=== PATIENT | female | born 1935 | race Caucasian/White ===

== ENCOUNTER 2016-07-16 14:04 | Inpatient (IN) | payer MEDICARE, BC ==
[~2016-07-16] VITALS: Ht 160 cm; Wt 57.9 kg
[~2016-07-16 14:04] MED LIST: CEPHALEXIN500 M1 PO; COUMADIN 22.5 MG/TAB PO; COZAAR 25MG25 MG/TAB PO; LASIX 20MG TABL20 MG PO; ZEBETA 5MG5 MG PO; ZOCOR 40MG40 MG PO
[2016-07-16] MEDS ORDERED: TENORMIN 5050 MG/TAB PO (14:10)
[2016-07-16 15:01] LABS: BASO # 0.1 (0.0-0.2); BASO % 0.4 % (0.0-2.0); EOS # 0.2 (0.0-0.7); EOS % 1.2 % (0-4.0); GRAN # 9.1 (1.4-6.5); GRAN % 73.7 % (42.2-75.2); LYMPH # 1.8 (1.2-3.4); LYMPH % 14.9 % (20.0-51.0); MEAN CELL VOLUME 82 fl (80.0-100.0); MEAN CORPUSCULAR HGB CONC 30 g/dl (33.0-37.0); MEAN PLATELET VOLUME 12.8 fl (7.4-10.4); MONO # 1.2 (0.1-0.6); MONO % 9.3 % (1.7-9.3); PLATELET COUNT 230 K/mm3 (130-400); RED BLOOD COUNT 3.31 M/mm3 (4.10-5.30); REDCELL DISTRIBUTION WIDTH-CV 17.1 % (11.5-14.5); WHITE BLOOD COUNT 12.3 K/mm3 (4.8-10.8)
[2016-07-16 15:02] LABS: HEMATOCRIT 27.1 % (37.0-47.0); HEMOGLOBIN 8.2 g/dl (12.5-16.0); MEAN CORPUSCULAR HEMOGLOBIN 25 pg (27.0-31.0)
[2016-07-16 15:06] LABS: INR 4.1 (0.8-3.0); PROTHROMBIN TIME 47.2 SECONDS (9.7-12.8)
[2016-07-16 15:37] LABS: ADJUSTED CALCIUM 9.5 mg/dL (8.4-10.2); ALBUMIN 3.6 gm/dL (3.5-5.0); BILIRUBIN,TOTAL 0.6 mg/dL (0.0-1.0); C-REACTIVE PROTEIN 0.7 mg/dL (0.0-0.9); CALCIUM 9.2 mg/dL (8.4-10.2); CREATININE, serum 1.13 mg/dL (0.52-1.25); POTASSIUM 3.7 mmol/L (3.4-5.0)
[2016-07-16 15:43] LABS: ERYTHROCYTE SEDIMENTATION RATE 32 mm/hr (0-30)
[2016-07-16 15:47] LABS: TROPONIN-I 0.015 ng/mL (0.000-0.034)
[2016-07-16 16:25] LABS: PH 5 (5-8); SQUAMOUS EPITHELIAL 0-2 /hpf; URINE BACTERIA None Seen /hpf; URINE BILIRUBIN Negative (NEGATIVE); URINE BLOOD Negative (NEGATIVE); URINE COLOR Yellow; URINE GLUCOSE Negative (NEGATIVE); URINE KETONE 1+ (NEGATIVE); URINE UROBILINOGEN Negative (NEGATIVE)
[2016-07-16 16:27] VITALS: BP 148/66; PULSE 70
[2016-07-16 16:30] LABS: URINE APPEARANCE Hazy
[2016-07-16] MEDS ORDERED: KLOR-CON M2020 MEQ PO (18:12)
[2016-07-16 18:19] VITALS: BP 131/81; PULSE 70
[2016-07-16 19:26] VITALS: BP 138/56; PULSE 72; TEMP 98.4
[2016-07-16 23:34] VITALS: BP 134/59; PULSE 68; TEMP 98.6
[2016-07-17] VITALS (13 sets, daily range): BP systolic 131–159; BP diastolic 48–68; PULSE 66–78; TEMP 97.6–98.8
[2016-07-17 06:53] LABS: BASO % 0.3 % (0.0-2.0); EOS # 0.2 (0.0-0.7); EOS % 1.3 % (0-4.0); GRAN # 10.8 (1.4-6.5); GRAN % 80.9 % (42.2-75.2); LYMPH # 1.3 (1.2-3.4); LYMPH % 9.4 % (20.0-51.0); MEAN CELL VOLUME 85 fl (80.0-100.0); MEAN CORPUSCULAR HGB CONC 29 g/dl (33.0-37.0); MEAN PLATELET VOLUME 12.8 fl (7.4-10.4); MONO % 7.7 % (1.7-9.3); PLATELET COUNT 209 K/mm3 (130-400); RED BLOOD COUNT 2.91 M/mm3 (4.10-5.30); REDCELL DISTRIBUTION WIDTH-CV 17.2 % (11.5-14.5); WHITE BLOOD COUNT 13.3 K/mm3 (4.8-10.8)
[2016-07-17 06:54] LABS: CALCIUM 8.2 mg/dL (8.4-10.2); CREATININE, serum 0.98 mg/dL (0.52-1.25)
[2016-07-17 06:56] LABS: HEMATOCRIT 24.8 % (37.0-47.0); HEMOGLOBIN 7.3 g/dl (12.5-16.0); MEAN CORPUSCULAR HEMOGLOBIN 25 pg (27.0-31.0)
[2016-07-17 07:05] LABS: INR 6.2 (0.8-3.0); PROTHROMBIN TIME 72.7 SECONDS (9.7-12.8)
[2016-07-18] VITALS (7 sets, daily range): BP systolic 123–157; BP diastolic 57–72; PULSE 63–75; TEMP 98.3–99.2
[2016-07-18 07:21] LABS: MEAN CELL VOLUME 84 fl (80.0-100.0); MEAN CORPUSCULAR HGB CONC 31 g/dl (33.0-37.0); MEAN PLATELET VOLUME 12.7 fl (7.4-10.4); PLATELET COUNT 212 K/mm3 (130-400); RED BLOOD COUNT 4.11 M/mm3 (4.10-5.30); REDCELL DISTRIBUTION WIDTH-CV 16.7 % (11.5-14.5); WHITE BLOOD COUNT 18.4 K/mm3 (4.8-10.8)
[2016-07-18 07:23] LABS: INR 1.3 (0.8-3.0)
[2016-07-18 07:24] LABS: HEMATOCRIT 34.4 % (37.0-47.0); HEMOGLOBIN 10.8 g/dl (12.5-16.0); MEAN CORPUSCULAR HEMOGLOBIN 26 pg (27.0-31.0)
[2016-07-18 07:25] LABS: ADD PATHOLOGY DIFF REVIEW NO
[2016-07-18 07:34] LABS: CALCIUM 8.5 mg/dL (8.4-10.2); CREATININE, serum 0.99 mg/dL (0.52-1.25); POTASSIUM 3.9 mmol/L (3.4-5.0)
[2016-07-18 07:54] LABS: BAND 6 % (0-10); EOSINOPHIL 2 % (0-4); METAMYELOCYTE 1 % (0-0); NEUTROPHILS 80 % (42.0-75.2); PLATELET ESTIMATE NORMAL (NORMAL); TOTAL CELLS COUNTED 100
[2016-07-19 03:33] VITALS: BP 133/68; PULSE 74; TEMP 98.6
[2016-07-19 07:26] LABS: INR 1.2 (0.8-3.0); PROTHROMBIN TIME 13.4 SECONDS (9.7-12.8)
[2016-07-19 07:27] LABS: BASO # 0.1 (0.0-0.2); BASO % 0.6 % (0.0-2.0); EOS # 0.3 (0.0-0.7); EOS % 2.2 % (0-4.0); GRAN # 10.3 (1.4-6.5); GRAN % 74.1 % (42.2-75.2); LYMPH # 1.6 (1.2-3.4); LYMPH % 11.3 % (20.0-51.0); MEAN CELL VOLUME 84 fl (80.0-100.0); MEAN CORPUSCULAR HGB CONC 32 g/dl (33.0-37.0); MEAN PLATELET VOLUME 12.7 fl (7.4-10.4); MONO # 1.5 (0.1-0.6); MONO % 10.9 % (1.7-9.3); PLATELET COUNT 221 K/mm3 (130-400); RED BLOOD COUNT 3.81 M/mm3 (4.10-5.30); REDCELL DISTRIBUTION WIDTH-CV 17.2 % (11.5-14.5); WHITE BLOOD COUNT 13.9 K/mm3 (4.8-10.8)
[2016-07-19 07:31] VITALS: BP 135/60; PULSE 73; TEMP 98.7
[2016-07-19 07:33] LABS: HEMATOCRIT 32.1 % (37.0-47.0); HEMOGLOBIN 10.2 g/dl (12.5-16.0); MEAN CORPUSCULAR HEMOGLOBIN 27 pg (27.0-31.0)
[2016-07-19 07:41] LABS: CALCIUM 8.4 mg/dL (8.4-10.2); CREATININE, serum 1.02 mg/dL (0.52-1.25); POTASSIUM 3.8 mmol/L (3.4-5.0)
[2016-07-19] MEDS ORDERED: COMPAZINE25 MG/SUPP RC (10:12)
[2016-07-19] MEDS ORDERED: ZOFRAN ODT4 MG PO (10:13)
[2016-07-19 11:09] VITALS: BP 134/62; PULSE 70; TEMP 98.4
[2016-07-19] MEDS ORDERED: COMPAZINE 110 MG/TAB PO (13:13)
[2016-07-19] MEDS ORDERED: ATIVAN 0.50.5 MG/TAB PO (13:14)
[2016-07-19] MEDS ORDERED: MUCINEX 60600 MG/TA1 PO (13:15)
== END 2016-07-19 16:28 | disposition home or self-care (01) | DRG 690 ==
LOC: COL.ER 14:04 → MEDICAL 17:05
PROVIDERS: Emergency Medicine; Internal Medicine; Nurse Practitioner Family
DX: N39.0 Urinary tract infection, site not specified (principal); C92.10 Chronic myeloid leukemia, BCR/ABL-positive, not having achieved remission; E86.0 Dehydration; Z95.2 Presence of prosthetic heart valve; Z95.810 Presence of automatic (implantable) cardiac defibrillator; Z79.01 Long term (current) use of anticoagulants; I10 Essential (primary) hypertension; Z95.1 Presence of aortocoronary bypass graft; I48.91 Unspecified atrial fibrillation; D64.81 Anemia due to antineoplastic chemotherapy; R62.7 Adult failure to thrive
CPT/HCPCS: 99223-AI; 99233-AI; 99239; G0378; G8978-GP; G8979-GP; J0696; J2060; J2405; J7030; J7050; P9040

== ENCOUNTER 2016-11-17 08:07 | Day surgery (SDC) | payer MEDICARE, BC ==
[~2016-11-17] VITALS: Ht 160 cm; Wt 54.1 kg
[2016-11-17] VITALS (8 sets, daily range): BP systolic 124–157; BP diastolic 62–79; PULSE 70–73; TEMP 97.3–98
[~2016-11-17 08:07] MED LIST changes: +ATIVAN 0.50.5 MG/TAB PO; +COMPAZINE 110 MG/TAB PO; +COMPAZINE25 MG/SUPP RC; +KLOR-CON M2020 MEQ PO; +MUCINEX 60600 MG/TA1 PO; +TENORMIN 5050 MG/TAB PO; +ZOFRAN ODT4 MG PO
[2016-11-17] MEDS ORDERED: ASPIRIN E.C. 8181 MG PO (08:41)
[2016-11-17] MEDS ORDERED: CALCIUM 600-D 61 TAB PO (08:47)
[2016-11-17] MEDS ORDERED: COUMADIN 22.5 MG/TAB PO (08:49)
[2016-11-17 08:55] LABS: HEMATOCRIT 37.7 % (37.0-47.0); MEAN CELL VOLUME 90 fl (80.0-100.0); MEAN CORPUSCULAR HEMOGLOBIN 29 pg (27.0-31.0); MEAN CORPUSCULAR HGB CONC 32 g/dl (33.0-37.0); PLATELET COUNT 212 K/mm3 (130-400); RED BLOOD COUNT 4.17 M/mm3 (4.10-5.30); REDCELL DISTRIBUTION WIDTH-CV 14.5 % (11.5-14.5)
[2016-11-17 09:00] LABS: HEMOGLOBIN 11.9 g/dl (12.5-16.0)
[2016-11-17 09:01] LABS: INR 1.6 (0.8-3.0); PROTHROMBIN TIME 17.4 SECONDS (9.7-12.8)
[2016-11-17 09:30] LABS: CALCIUM 8.5 mg/dL (8.4-10.2); CREATININE, serum 1.02 mg/dL (0.52-1.25); POTASSIUM 4.5 mmol/L (3.4-5.0)
[2016-11-17] MEDS ORDERED: CEPHALEXIN500 M1 PO (11:28)
== END 2016-11-17 13:42 | disposition home or self-care (01) ==
LOC: COL.CAR 08:07
PROVIDERS: Internal Medicine Cardiovascular Disease
DX: Z45.02 Encounter for adjustment and management of automatic implantable cardiac defibrillator (principal); R00.1 Bradycardia, unspecified; I48.91 Unspecified atrial fibrillation; I05.9 Rheumatic mitral valve disease, unspecified; I50.22 Chronic systolic (congestive) heart failure; I10 Essential (primary) hypertension; C92.10 Chronic myeloid leukemia, BCR/ABL-positive, not having achieved remission; E78.5 Hyperlipidemia, unspecified; Z79.01 Long term (current) use of anticoagulants; Z95.1 Presence of aortocoronary bypass graft; Z80.3 Family history of malignant neoplasm of breast; Z80.1 Family history of malignant neoplasm of trachea, bronchus and lung; I50.1 Left ventricular failure, unspecified
CPT/HCPCS: C1882; J0690; J2250; J3010; J7040

== ENCOUNTER 2017-05-06 10:58 | Inpatient (IN) | payer MEDICARE, BC ==
[~2017-05-06] VITALS: Ht 160 cm; Wt 62.0 kg
[~2017-05-06 10:58] MED LIST changes: +ASPIRIN E.C. 8181 MG PO; +CALCIUM 600-D 61 TAB PO
[2017-05-06 12:30] LABS: INR 2.5 (0.8-3.0); PROTHROMBIN TIME 28.9 SECONDS (9.7-12.8)
[2017-05-06 12:34] LABS: ADJUSTED CALCIUM 7.9 mg/dL (8.4-10.2); ALBUMIN 3.4 gm/dL (3.5-5.0); BILIRUBIN,TOTAL 1.2 mg/dL (0.0-1.0); CALCIUM 7.4 mg/dL (8.4-10.2); CREATININE, serum 1.25 mg/dL (0.52-1.25); MAGNESIUM 2.1 mg/dL (1.6-2.3); PHOSPHOROUS 2.4 mg/dL (2.5-4.5); POTASSIUM 3.7 mmol/L (3.4-5.0); TOTAL PROTEIN 6.3 gm/dL (6.4-8.2)
[2017-05-06 12:47] LABS: MEAN CELL VOLUME 95 fl (80.0-100.0); MEAN CORPUSCULAR HGB CONC 32 g/dl (33.0-37.0); MEAN PLATELET VOLUME 12.3 fl (7.4-10.4); PLATELET COUNT 69 K/mm3 (130-400); RED BLOOD COUNT 3.22 M/mm3 (4.10-5.30)
[2017-05-06 13:02] LABS: ADD PATHOLOGY DIFF REVIEW NO; HEMATOCRIT 30.5 % (37.0-47.0); HEMOGLOBIN 9.8 g/dl (12.5-16.0); MEAN CORPUSCULAR HEMOGLOBIN 30 pg (27.0-31.0); WHITE BLOOD COUNT 29.7 K/mm3 (4.8-10.8)
[2017-05-06 13:34] LABS: BAND 16 % (0-10); LYMPHOCYTE 6 % (20.0-51.0); NEUTROPHILS 77 % (42.0-75.2); PLATELET ESTIMATE DECREASED (NORMAL); TOTAL CELLS COUNTED 100
[2017-05-06 17:20] VITALS: BP 108/47; PULSE 84; TEMP 99
[2017-05-06] MEDS ORDERED: GLEEVEC100 MG PO (17:28)
[2017-05-06 19:01] LABS: HEMOGLOBIN 8.7 g/dl (12.5-16.0)
[2017-05-06 21:13] LABS: HEMATOCRIT 26.3 % (37.0-47.0); HEMOGLOBIN 8.4 g/dl (12.5-16.0)
[2017-05-06 21:17] VITALS: BP 108/42; PULSE 82; TEMP 99.2
[2017-05-07 01:59] VITALS: BP 119/66; PULSE 72; TEMP 98.6
[2017-05-07 04:44] VITALS: BP 103/51; PULSE 83; TEMP 98.4
[2017-05-07 06:40] LABS: MEAN CELL VOLUME 95 fl (80.0-100.0); MEAN CORPUSCULAR HGB CONC 32 g/dl (33.0-37.0); MEAN PLATELET VOLUME 12.6 fl (7.4-10.4); PLATELET COUNT 55 K/mm3 (130-400); RED BLOOD COUNT 2.68 M/mm3 (4.10-5.30); WHITE BLOOD COUNT 15.9 K/mm3 (4.8-10.8)
[2017-05-07 06:41] LABS: HEMATOCRIT 25.5 % (37.0-47.0); HEMOGLOBIN 8.2 g/dl (12.5-16.0); INR 2.6 (0.8-3.0); MEAN CORPUSCULAR HEMOGLOBIN 31 pg (27.0-31.0); PROTHROMBIN TIME 29.9 SECONDS (9.7-12.8)
[2017-05-07 06:42] LABS: ADD PATHOLOGY DIFF REVIEW NO
[2017-05-07 06:57] LABS: CALCIUM 6.6 mg/dL (8.4-10.2); CREATININE, serum 1.07 mg/dL (0.52-1.25); POTASSIUM 3.6 mmol/L (3.4-5.0)
[2017-05-07 08:14] LABS: BAND 5 % (0-10); LYMPHOCYTE 5 % (20.0-51.0); NEUTROPHILS 88 % (42.0-75.2); TOTAL CELLS COUNTED 100
[2017-05-07 08:16] LABS: PLATELET ESTIMATE DECREASED (NORMAL)
[2017-05-07 09:29] VITALS: BP 105/83; PULSE 77; TEMP 98.4
[2017-05-07 14:02] VITALS: BP 130/55; PULSE 78; TEMP 98.1
[2017-05-07 17:09] VITALS: BP 111/48; PULSE 96; TEMP 98.4
[2017-05-07 21:00] VITALS: BP 121/47; PULSE 59; TEMP 98.7
[2017-05-08] VITALS (7 sets, daily range): BP systolic 116–130; BP diastolic 51–75; PULSE 75–130; TEMP 97.1–99.2
[2017-05-08 06:34] LABS: MEAN CELL VOLUME 95 fl (80.0-100.0); MEAN CORPUSCULAR HGB CONC 32 g/dl (33.0-37.0); PLATELET COUNT 64 K/mm3 (130-400); RED BLOOD COUNT 2.66 M/mm3 (4.10-5.30); WHITE BLOOD COUNT 9.4 K/mm3 (4.8-10.8)
[2017-05-08 06:35] LABS: ADD PATHOLOGY DIFF REVIEW NO; HEMATOCRIT 25.3 % (37.0-47.0); HEMOGLOBIN 8.2 g/dl (12.5-16.0); MEAN CORPUSCULAR HEMOGLOBIN 31 pg (27.0-31.0)
[2017-05-08 06:58] LABS: CALCIUM 6.4 mg/dL (8.4-10.2); CREATININE, serum 0.91 mg/dL (0.52-1.25); PHOSPHOROUS 2.2 mg/dL (2.5-4.5); POTASSIUM 3.4 mmol/L (3.4-5.0)
[2017-05-08 07:35] LABS: BAND 4 % (0-10); BASOPHIL 1 % (0-2); LYMPHOCYTE 16 % (20.0-51.0); NEUTROPHILS 76 % (42.0-75.2); PLATELET ESTIMATE DECREASED (NORMAL); TOTAL CELLS COUNTED 100
[2017-05-08 07:36] LABS: ANISOCYTOSIS 1+
[2017-05-09 00:30] VITALS: BP 122/50; PULSE 78; TEMP 98.7
[2017-05-09 04:25] VITALS: BP 130/54; PULSE 97; TEMP 87
[2017-05-09 06:37] LABS: MEAN CELL VOLUME 97 fl (80.0-100.0); MEAN CORPUSCULAR HGB CONC 32 g/dl (33.0-37.0); MEAN PLATELET VOLUME 11.2 fl (7.4-10.4); PLATELET COUNT 68 K/mm3 (130-400); RED BLOOD COUNT 2.68 M/mm3 (4.10-5.30); WHITE BLOOD COUNT 9.1 K/mm3 (4.8-10.8)
[2017-05-09 06:38] LABS: ADD PATHOLOGY DIFF REVIEW NO; HEMOGLOBIN 8.3 g/dl (12.5-16.0); MEAN CORPUSCULAR HEMOGLOBIN 31 pg (27.0-31.0)
[2017-05-09 06:45] LABS: CALCIUM 6.9 mg/dL (8.4-10.2); CREATININE, serum 0.93 mg/dL (0.52-1.25); PHOSPHOROUS 2.4 mg/dL (2.5-4.5); POTASSIUM 3.9 mmol/L (3.4-5.0)
[2017-05-09 07:06] LABS: BAND 3 % (0-10); BASOPHIL 1 % (0-2); EOSINOPHIL 1 % (0-4); LYMPHOCYTE 9 % (20.0-51.0); METAMYELOCYTE 1 % (0-0); NEUTROPHILS 83 % (42.0-75.2); PLATELET ESTIMATE DECREASED (NORMAL); TOTAL CELLS COUNTED 100
[2017-05-09 07:08] LABS: HYPOCHROMIA 1+
[2017-05-09 08:24] VITALS: BP 117/64; PULSE 84; TEMP 97.9
[2017-05-09] MEDS ORDERED: PRIL40 PO (11:46)
[2017-05-09] MEDS ORDERED: PROBIOTIC ACID1 EAC3 PO (11:47)
[2017-05-09] MEDS ORDERED: FLORASTOR250 MG PO (11:47)
[2017-05-09] MEDS ORDERED: CIPRO 500MG TA500 MG PO (11:52)
[2017-05-09] MEDS ORDERED: FLAGYL500 MG PO (11:52)
== END 2017-05-09 14:15 | disposition home or self-care (01) | DRG 378 ==
LOC: COL.ER 10:58 → SURG 14:40
PROVIDERS: Emergency Medicine; Internal Medicine; Physician Assistant
DX: K92.1 Melena (principal); D62 Acute posthemorrhagic anemia; E87.1 Hypo-osmolality and hyponatremia; C92.10 Chronic myeloid leukemia, BCR/ABL-positive, not having achieved remission; I10 Essential (primary) hypertension; I48.91 Unspecified atrial fibrillation; Z79.01 Long term (current) use of anticoagulants; Z95.2 Presence of prosthetic heart valve; Z95.0 Presence of cardiac pacemaker
CPT/HCPCS: 99222-AI; 99232-AI; 99238; C9113; J0744; J1956; J7030; J7050; Q9967

== ENCOUNTER 2019-04-13 21:05 | Inpatient (IN) | payer MEDICARE, BC ==
[~2019-04-13] VITALS: Ht 160 cm; Wt 63.5 kg
[~2019-04-13 21:05] MED LIST changes: +CIPRO 500MG TA500 MG PO; +FLAGYL500 MG PO; +FLORASTOR250 MG PO; +GLEEVEC100 MG PO; +PRIL40 PO; +PROBIOTIC ACID1 EAC3 PO
[2019-04-13] MEDS ORDERED: COUMADIN 22.5 MG/TAB PO (21:43)
[2019-04-13] MEDS ORDERED: ALDACTONE 25MG25 M1 PO (21:43)
[2019-04-13] MEDS ORDERED: ZEBETA 5MG5 MG PO (21:43)
[2019-04-13 21:46] LABS: HEMOGLOBIN 10.7 g/dl (12.5-16.0); MEAN CELL VOLUME 100 fl (80.0-100.0); MEAN CORPUSCULAR HEMOGLOBIN 32 pg (27.0-31.0); MEAN CORPUSCULAR HGB CONC 32 g/dl (33.0-37.0); MEAN PLATELET VOLUME 11.8 fl (7.4-10.4); PLATELET COUNT 126 K/mm3 (130-400); RED BLOOD COUNT 3.32 M/mm3 (4.10-5.30); REDCELL DISTRIBUTION WIDTH-CV 13.2 % (11.5-14.5)
[2019-04-13 21:48] LABS: HEMATOCRIT 33.3 % (37.0-47.0)
[2019-04-13 21:55] LABS: ALBUMIN 3.7 gm/dL (3.5-5.0); BILIRUBIN,TOTAL 0.8 mg/dL (0.0-1.0); CREATININE, serum 2.18 (0.52-1.25); POTASSIUM 4.5 mmol/L (3.4-5.0); TOTAL PROTEIN 6.6 gm/dL (6.4-8.2)
[2019-04-13 21:56] LABS: INR 3.3 (0.8-3.0); PROTHROMBIN TIME 39.6 SECONDS (9.7-12.8)
[2019-04-13 22:19] LABS: BAND 3 % (0-10); LYMPHOCYTE 3 % (20.0-51.0); NEUTROPHILS 92 % (42.0-75.2)
[2019-04-13 22:20] LABS: PLATELET ESTIMATE NORMAL (NORMAL)
[2019-04-13 23:43] LABS: COLLECTION METHOD CLEAN CATCH
[2019-04-13 23:52] LABS: MAGNESIUM 1.8 mg/dL (1.6-2.3)
[2019-04-13 23:54] LABS: MUCOUS Present /lpf; PH 5 (5-8); SQUAMOUS EPITHELIAL None Seen /hpf; URINE APPEARANCE Cloudy; URINE BACTERIA Occasional /hpf; URINE BILIRUBIN Negative (NEGATIVE); URINE BLOOD 3+ (NEGATIVE); URINE COLOR Yellow; URINE GLUCOSE Negative (NEGATIVE); URINE KETONE Negative (NEGATIVE); URINE LEUKOCYTE ESTERASE 3+ (NEGATIVE); URINE NITRATE Negative (NEGATIVE); URINE PROTEIN(semi-quant) 2+ (NEGATIVE); URINE UROBILINOGEN Negative (NEGATIVE)
[2019-04-14] VITALS (145 sets, daily range): BP systolic 93–113; BP diastolic 37–77; PULSE 72–94; TEMP 97.9–98.5; O2SAT 86–98
--- NOTE | 2019-04-14 | NUR ---
Phone report received from Viri from ED.
--- NOTE | 2019-04-14 00:05 | NUR ---
Pt arrived from ED via stretcher into ICU02. Pt was able to ambulate X1 stand by assist with a steady gait. Denies any current pain. Makes wants and needs known to staff. Personal belongings placed at bedside with call light, with in reach and other belongings placed in the closet. Assessment completed at this time.
--- NOTE | 2019-04-14 00:30 | NUR ---
Nitropaste removed from pts right medial chest.
[2019-04-14] MEDS ORDERED: ZOCOR 80MG80 MG PO (00:52)
[2019-04-14 04:08] LABS: BASO % 0.3 % (0.0-2.0); GRAN # 13.9 (1.4-6.5); GRAN % 89.7 % (42.2-75.2); LYMPH # 0.6 (1.2-3.4); LYMPH % 4.1 % (20.0-51.0); MEAN CELL VOLUME 101 fl (80.0-100.0); MEAN CORPUSCULAR HGB CONC 32 g/dl (33.0-37.0); MEAN PLATELET VOLUME 11.5 fl (7.4-10.4); MONO # 0.7 (0.1-0.6); MONO % 4.8 % (1.7-9.3); PLATELET COUNT 107 K/mm3 (130-400); RED BLOOD COUNT 2.85 M/mm3 (4.10-5.30); REDCELL DISTRIBUTION WIDTH-CV 13.3 % (11.5-14.5)
[2019-04-14 04:11] LABS: HEMATOCRIT 28.9 % (37.0-47.0); HEMOGLOBIN 9.2 g/dl (12.5-16.0); MEAN CORPUSCULAR HEMOGLOBIN 32 pg (27.0-31.0)
[2019-04-14 04:14] LABS: PROTHROMBIN TIME 48.9 SECONDS (9.7-12.8)
[2019-04-14 04:18] LABS: ALBUMIN 3.1 gm/dL (3.5-5.0); BILIRUBIN,TOTAL 0.4 mg/dL (0.0-1.0); CALCIUM 8.1 mg/dL (8.4-10.2); CREATININE, serum 1.92 (0.52-1.25); POTASSIUM 4.1 mmol/L (3.4-5.0); TOTAL PROTEIN 5.7 gm/dL (6.4-8.2)
[2019-04-14 04:36] LABS: TROPONIN-I 6 HR POST INITIAL 0.098 ng/mL (0.000-0.034)
--- NOTE | 2019-04-14 05:45 | NUR ---
Pt called for assistance up to the bathroom. Bladder scanned pt prior to use of the restroom with a reading of 295mL. Per the hat in the toilet pts urine measured 200cc out. When pt was rescanned X2 there was 0cc's detected in the bladder.
--- NOTE | 2019-04-14 06:40 | NUR ---
At approximately 0600 pt reported to this nurse the need to use the restroom. Following use of the toilet pt told this nurse of starting to feel shakey again. Mild tremor like movements were noted bilaterally when hands were held out. Pt reported possible hunger. Pudding and judah crackers were obtained, BS checked and WNL. Pt reports mild SOA with pursed lipped breathing noted. Pt sat up in bed during this time. Reports that symptoms felt the same as they had during prior episode although "not as bad". Denies dizziness, pain, feeling cold or nausea at this time. Pt remains on room air. Episode lasted approximately 30 minutes.
--- NOTE | 2019-04-14 07:00 | NUR ---
Report provided to Gordon JAQUEZ. Pt resting in bed at this time.
--- NOTE | 2019-04-14 11:33 | NUR ---
Assessment completed, alert/oriented, vital signs stable, denies pain or discomfort, she olivia any chest pain or dsicomfort, denies any SOA or resp.difficulty, heart RRR/distal pulses are palpable, Troponin peaked at 0.125 and is trending back down now, lungs CTA, Cardiology was consulted and has seen patient/ ECHO done today and plans for stress test on tuesday04/16/19, UA+ foro UTI and creat elevated so we are giving IVF, patient is now eating breakfast, possible trasnfer to Medical floor later today, denies other needs at this time
--- NOTE | 2019-04-14 12:14 | NUR ---
Senior C Web Developerkelsey atkins offered prayer and support with patient.
--- NOTE | 2019-04-14 14:16 | NUR ---
Plan: To return home. SM currently lives alone, and reported her children as emergency contact: Kennedy([phone]), and [phone]. PAtient indicated that she does have a DPOA, but that it is at home. PAtient resides in [place]. Assess: SW met with patient in ICU. Patient reported that she is independent with no assistance, and she does not use any DM equipment. Patients PCP is Dr. Valle, she does not have a follow up appt scheduled. PAtient reportes that she receives her medications from [facility] with no complications. Patient declined having any concerns, and declined HHS at this time. Action: No additionl concerns identified. Patient was educated on community resources and supports.
--- NOTE | 2019-04-14 16:14 | NUR ---
Patient has orders to transfer to the Medical floor, I have called and given report to receiving nurse GISELE Dillard , library monitor placed and I transfported the patient and her belongings to room 314 via wheelchair, patient denied other needs at the time and I notified Medical floor staff of her arrival
--- NOTE | 2019-04-14 16:20 | NUR ---
Pt arrived to the floor room 314 at this time. She is A/O x4. Her breathing is even and unlabored on RA. Denies SOB. Lungs CTA. HR regular. Pt denies chest pain and palpitations. Reports some neck pain from "laying in bed". Abdomen soft and non tender, +BS. Pt denies N/V. IVF infusing without complications. No edema present. Pt requesting to shower, will assist her shortly. POC discussed with patient, she verbalizes understanding. No needs at this time. Call light within reach.
--- NOTE | 2019-04-14 18:27 | NUR ---
Pt showered after arriving to the floor. Reports pain to neck, SHRAVAN Mustafa notified. New orders to be put in.
--- NOTE | 2019-04-14 20:01 | NUR ---
Report received from GISELE Dillard. Patient resting in bed. Assessment complete. Patient had previously reported neck pain, was given tylenol and stated she had some improvement. NS infusing at 75ml/hr to patent IV in right forearm. Denies any other pain. Pulses strong. Bowels active. Lungs CTA. Patient paced on tele. Denies any further needs at this time. Call light within reach.
--- NOTE | 2019-04-15 02:10 | NUR ---
Patient resting in bed. New bag of NS started and IV rocephin started. Call light within reach.
[2019-04-15 03:36] VITALS: BP 105/71; PULSE 72; TEMP 97.4
--- NOTE | 2019-04-15 05:47 | NUR ---
Patient had uneventful night. Resting in bed. Has stated no needs throughout night. Call light within reach.
[2019-04-15 06:34] LABS: BASO # 0.1 (0.0-0.2); BASO % 0.4 % (0.0-2.0); EOS # 0.1 (0.0-0.7); GRAN # 9.2 (1.4-6.5); GRAN % 75.6 % (42.2-75.2); LYMPH # 1.6 (1.2-3.4); LYMPH % 12.9 % (20.0-51.0); MEAN CELL VOLUME 100 fl (80.0-100.0); MEAN CORPUSCULAR HGB CONC 32 g/dl (33.0-37.0); MEAN PLATELET VOLUME 12.4 fl (7.4-10.4); MONO # 1.2 (0.1-0.6); MONO % 9.6 % (1.7-9.3); PLATELET COUNT 112 K/mm3 (130-400); RED BLOOD COUNT 2.82 M/mm3 (4.10-5.30); REDCELL DISTRIBUTION WIDTH-CV 13.5 % (11.5-14.5)
[2019-04-15 06:36] LABS: INR 3.4 (0.8-3.0); PROTHROMBIN TIME 40.7 SECONDS (9.7-12.8)
[2019-04-15 06:37] LABS: HEMATOCRIT 28.3 % (37.0-47.0); HEMOGLOBIN 9.1 g/dl (12.5-16.0); MEAN CORPUSCULAR HEMOGLOBIN 32 pg (27.0-31.0)
[2019-04-15 06:44] LABS: CALCIUM 7.7 mg/dL (8.4-10.2); CHOLESTEROL RISK RATIO 2.2; CREATININE, serum 1.61 (0.52-1.25); POTASSIUM 4.7 mmol/L (3.4-5.0)
--- NOTE | 2019-04-15 06:58 | NUR ---
Report given to GISELE Pedro
[2019-04-15 08:18] VITALS: BP 109/47; PULSE 70; TEMP 98.1
--- NOTE | 2019-04-15 10:20 | NUR ---
Pt sitting up on side of bed, talkative, no C/O pain at this time, shift assessments complete, left Pt call light in reach, bed in lowest position.
[2019-04-15 12:40] VITALS: BP 119/53; PULSE 80; TEMP 97.5
[2019-04-15 17:27] VITALS: BP 124/47; PULSE 72; TEMP 97.5
--- NOTE | 2019-04-15 18:27 | NUR ---
Pt has been resting in room today, she has been sitting up in the recliner a god portion of the day, independent in the room, has had no C/O pain, VS have remained stable.
--- NOTE | 2019-04-15 19:04 | NUR ---
Report given to GISELE Courtney.
[2019-04-15 19:49] VITALS: BP 125/71; PULSE 75; TEMP 98
--- NOTE | 2019-04-15 20:20 | NUR ---
Shift assessment complete. Pt resting in bed, awake, a&o, cooperative c cares. Pt c/o continued pain to R shoulder/neck, PRN APAP admin per pt req. Pt also reports continued loose stools, PRN Immodium admin per pt req. Pt denies any other c/o at this time. IV patent. Tele in place. Pt denies further needs. Call light in reach. Will continue to monitor.
[2019-04-15 23:55] VITALS: BP 126/54; PULSE 72; TEMP 98.3
[2019-04-16] VITALS (9 sets, daily range): BP systolic 113–140; BP diastolic 55–72; PULSE 61–97; TEMP 97.8–98.1
[2019-04-16 06:21] LABS: BASO % 0.5 % (0.0-2.0); EOS # 0.2 (0.0-0.7); EOS % 2.5 % (0-4.0); GRAN # 6.1 (1.4-6.5); GRAN % 69.6 % (42.2-75.2); LYMPH # 1.4 (1.2-3.4); LYMPH % 15.7 % (20.0-51.0); MEAN CELL VOLUME 101 fl (80.0-100.0); MEAN CORPUSCULAR HGB CONC 31 g/dl (33.0-37.0); MEAN PLATELET VOLUME 11.7 fl (7.4-10.4); MONO % 11.1 % (1.7-9.3); PLATELET COUNT 135 K/mm3 (130-400); REDCELL DISTRIBUTION WIDTH-CV 13.8 % (11.5-14.5)
[2019-04-16 06:23] LABS: HEMATOCRIT 29.4 % (37.0-47.0); HEMOGLOBIN 9.2 g/dl (12.5-16.0); MEAN CORPUSCULAR HEMOGLOBIN 32 pg (27.0-31.0)
[2019-04-16 06:24] LABS: INR 2.5 (0.8-3.0); PROTHROMBIN TIME 30.3 SECONDS (9.7-12.8)
[2019-04-16 06:33] LABS: ALBUMIN 2.9 gm/dL (3.5-5.0); BILIRUBIN,TOTAL 0.2 mg/dL (0.0-1.0); CREATININE, serum 1.48 (0.52-1.25); POTASSIUM 4.8 mmol/L (3.4-5.0); TOTAL PROTEIN 5.6 gm/dL (6.4-8.2)
--- NOTE | 2019-04-16 08:30 | NUR ---
Pt left for lexiscan at this time.
--- NOTE | 2019-04-16 10:50 | NUR ---
Pt back from [facility] at this time.
--- NOTE | 2019-04-16 11:27 | NUR ---
Pt assessment completed. Pt is sitting up in bed after lexiscan. POC discussed with patient who will remain NPO until results of test have been read. Pt currently reports R sided neck pain, PRN Tylenol and warm pack provided. Pt also reports she had loose stools during the darya scan, PRN Immodium administered. IVF started to RAC. No needs at this time. Call light wtihin reach. Will continue to monitor.
[2019-04-16] MEDS ORDERED: OMNICEF 300MG300 MG PO (12:47)
--- NOTE | 2019-04-16 16:22 | NUR ---
Discharge instructions and paperwork reviewed with patient, all questions answered at this time. IV to RAC dc'd catheter tip intact. Pt wheeled out of facility at this time.
== END 2019-04-16 16:23 | disposition home or self-care (01) | DRG 689 ==
LOC: COL.ER 21:05 → ICU 22:46 → COL.ER 22:46 → ICU 22:47 → MEDICAL 04-14 16:06 → ICU 04-14 16:06 → MEDICAL 04-14 16:06
PROVIDERS: Emergency Medicine; Family Medicine; Nurse Practitioner Family; ADMIT Hospitalist
DX: N39.0 Urinary tract infection, site not specified (principal); I21.A1 Myocardial infarction type 2; I42.9 Cardiomyopathy, unspecified; C92.10 Chronic myeloid leukemia, BCR/ABL-positive, not having achieved remission; N17.9 Acute kidney failure, unspecified; I10 Essential (primary) hypertension; D50.9 Iron deficiency anemia, unspecified; D69.6 Thrombocytopenia, unspecified; E78.5 Hyperlipidemia, unspecified; I05.9 Rheumatic mitral valve disease, unspecified; B96.20 Unspecified Escherichia coli [E. coli] as the cause of diseases classified elsewhere; I48.91 Unspecified atrial fibrillation; Z79.01 Long term (current) use of anticoagulants; Z95.810 Presence of automatic (implantable) cardiac defibrillator
CPT/HCPCS: 99222-AI; 99233-AI; 99239; A4216; A9500; J0696; J2785; J7030

== ENCOUNTER 2020-08-26 06:45 | Inpatient (IN) | payer MEDICARE, BC ==
[~2020-08-26 06:45] MED LIST changes: +ALDACTONE 25MG25 M1 PO; +OMNICEF 300MG300 MG PO; +ZOCOR 80MG80 MG PO
[2020-08-26] MEDS ORDERED: ALDACTONE 25MG25 M1 PO (09:16)
[2020-08-26] MEDS ORDERED: GLEEVEC100 MG PO (09:17)
[2020-08-26 10:05] LABS: BASO # 0.1 (0.0-0.2); BASO % 0.4 % (0.0-2.0); EOS % 0.2 % (0-4.0); GRAN # 17.8 (1.4-6.5); GRAN % 85.6 % (42.2-75.2); HEMOGLOBIN 11.2 g/dl (12.5-16.0); LYMPH # 1.2 (1.2-3.4); MEAN CELL VOLUME 92 fl (80.0-100.0); MEAN CORPUSCULAR HEMOGLOBIN 29 pg (27.0-31.0); MEAN CORPUSCULAR HGB CONC 32 g/dl (33.0-37.0); MONO # 1.5 (0.1-0.6); MONO % 7.2 % (1.7-9.3); PLATELET COUNT 343 K/mm3 (130-400); RED BLOOD COUNT 3.84 M/mm3 (4.10-5.30); REDCELL DISTRIBUTION WIDTH-CV 16.3 % (11.5-14.5)
[2020-08-26 10:11] LABS: HEMATOCRIT 35.5 % (37.0-47.0)
[2020-08-26 10:14] LABS: ALBUMIN 3.7 gm/dL (3.5-5.0); BILIRUBIN,TOTAL 0.6 mg/dL (0.0-1.0); CALCIUM 8.3 mg/dL (8.4-10.2); CREATININE, serum 1.55 (0.52-1.25); INR 3.9 (0.8-3.0); MAGNESIUM 2.1 mg/dL (1.6-2.3); POTASSIUM 3.7 mmol/L (3.4-5.0); PROTHROMBIN TIME 44.8 SECONDS (9.7-12.8); TOTAL PROTEIN 6.9 gm/dL (6.4-8.2)
--- NOTE | 2020-08-26 10:35 | NUR ---
DR. NERI NOTIFIED OF PT COUGH, NOTIFIED OF PT WBC AND QTC. NO OTHER NEEDS
[2020-08-26 10:50] VITALS: BP 112/59; PULSE 77; TEMP 97.9
[2020-08-26 11:21] VITALS: BP 125/57; PULSE 74; TEMP 98
[2020-08-26 17:23] VITALS: BP 109/71; PULSE 72; TEMP 98.5
--- NOTE | 2020-08-26 17:42 | NUR ---
PT PLEASANT, AOX4, HAS COUGH, DR. NERI BELIEVES IT TO BE ACID REFLUX, PT REPORTED HAVING DIARRHEA TODAY THAT WAS NEW, PT MED SENT TO PHARMACY FOR A LABEL, PT DENIES PAIN, TELE ON, NO OTHER NEEDS
[2020-08-26 20:49] VITALS: BP 116/63; PULSE 89; TEMP 98.2
--- NOTE | 2020-08-27 10:01 | NUR ---
Initial visit; Patient thanked Bowl Attendant for stopping and wishing her well and offering God's blessings.
[2020-08-27 20:00] VITALS: BP 111/53; PULSE 79; TEMP 98.4
--- NOTE | 2020-08-27 20:40 | NUR ---
Patient assessed at this time. Alert and oriented x 4, and able to make needs known. Denies having pain and discomfort at this time. Peripheral INT to to right hand. Denies having SOB and dsypnea. LS CTA. Respirations even and unlabored. HRR. Capillary refill less than 3 seconds. Non-tenting skin turgor. BSAx4. Abdomen soft and non-tender. No edema. Voices no questions, needs, or concerns at this time. Resting in bed with call ligtht within reach.
[2020-08-28 00:54] VITALS: BP 119/54; PULSE 76; TEMP 98.5
[2020-08-28 05:32] VITALS: BP 105/55; PULSE 69; TEMP 98.8
--- NOTE | 2020-08-28 06:10 | NUR ---
Patient has been resting in bed with call light within reach. Voices no questios, needs, or concerns at this time. Reported that [employer] did help her get some resting during the night.
[2020-08-28 07:07] LABS: HEMOGLOBIN 10.1 g/dl (12.5-16.0); MEAN CELL VOLUME 92 fl (80.0-100.0); MEAN CORPUSCULAR HEMOGLOBIN 30 pg (27.0-31.0); MEAN CORPUSCULAR HGB CONC 33 g/dl (33.0-37.0); MEAN PLATELET VOLUME 10.5 fl (7.4-10.4); PLATELET COUNT 271 K/mm3 (130-400); REDCELL DISTRIBUTION WIDTH-CV 16.5 % (11.5-14.5)
[2020-08-28 07:24] LABS: HEMATOCRIT 31.1 % (37.0-47.0)
[2020-08-28 07:33] LABS: CALCIUM 7.6 mg/dL (8.4-10.2); CREATININE, serum 1.3 (0.52-1.25); MAGNESIUM 2.4 mg/dL (1.6-2.3); POTASSIUM 4.6 mmol/L (3.4-5.0)
[2020-08-28 07:48] LABS: INR 3.7 (0.8-3.0); PROTHROMBIN TIME 42.1 SECONDS (9.7-12.8)
[2020-08-28 08:21] LABS: ANISOCYTOSIS 1+; BAND 1 % (0-10); EOSINOPHIL 2 % (0-4); HYPOCHROMIA 1+; LYMPHOCYTE 6 % (20.0-51.0); NEUTROPHILS 80 % (42.0-75.2); PLATELET ESTIMATE NORMAL (NORMAL)
--- NOTE | 2020-08-28 08:48 | NUR ---
(Late Entry 08/27/20) Student Specialist met with patient to discuss discharge plan. Patient lives alone in [place] and sees Dr. Valle for primary care. Patient obtains medications from [facility] and does not use any DME. Patient reports independence with ADLS. Patient advised her children Kennedy Yeager and Mariola Bravo (ph#[phone]) are her DPOA-HC. Patient states she plans to return home upon discharge. SW will continue to follow.
[2020-08-28 09:27] VITALS: BP 118/62; PULSE 77; TEMP 98.3
--- NOTE | 2020-08-28 09:30 | NUR ---
Pt awake in bed, states she feels "somewhat better", states her coughing is improved. Sotolol held for QTC at 570, physician paged, awaiting return call. Denies pain, no needs voiced at this time.
--- NOTE | 2020-08-28 09:58 | NUR ---
DR. NERI RETURNED MY PAGE, STATED HE WANTED TO GO AHEAD AND GIVE THE SOTOLOL DESPITE THE HIGH QTC.
[2020-08-28 12:43] LABS: CALCIUM 7.9 mg/dL (8.4-10.2); CREATININE, serum 1.35 (0.52-1.25); MAGNESIUM 2.5 mg/dL (1.6-2.3); POTASSIUM 4.2 mmol/L (3.4-5.0)
[2020-08-28 12:44] LABS: PROTHROMBIN TIME 45.7 SECONDS (9.7-12.8)
[2020-08-28 12:59] VITALS: BP 130/63; PULSE 88; TEMP 97.7
[2020-08-28 13:13] LABS: HEMATOCRIT 33.2 % (37.0-47.0); HEMOGLOBIN 10.4 g/dl (12.5-16.0); MEAN CELL VOLUME 92 fl (80.0-100.0); MEAN CORPUSCULAR HEMOGLOBIN 29 pg (27.0-31.0); MEAN CORPUSCULAR HGB CONC 31 g/dl (33.0-37.0); MEAN PLATELET VOLUME 10.8 fl (7.4-10.4); PLATELET COUNT 298 K/mm3 (130-400); REDCELL DISTRIBUTION WIDTH-CV 16.5 % (11.5-14.5)
[2020-08-28 13:14] LABS: ANISOCYTOSIS 1+; BAND 1 % (0-10); EOSINOPHIL 1 % (0-4); LYMPHOCYTE 8 % (20.0-51.0); NEUTROPHILS 84 % (42.0-75.2); PLATELET ESTIMATE NORMAL (NORMAL)
--- NOTE | 2020-08-28 13:15 | NUR ---
PT REPORTED FEELILNG DIZZY. VITAL SIGNS TAKEN. DARON CALLED, STILL COMFORTABLE WITH DISCHARGE, APPT WITH DR. BARONE ADDED ON AND TOLD PT TO CALL OFFICE TOMORROW TO GET TIME AND DATE. PT HOME MEDS GIVEN BACK TO HER, NO OTHER NEEDS.
[2020-08-28] MEDS ORDERED: ZYRTEC 10MG10 MG PO (13:44)
[2020-08-28] MEDS ORDERED: PROTONIX 40MG T40 MG PO (13:47)
[2020-08-28] MEDS ORDERED: MUCUS RELIEF400 M1 PO (13:48)
[2020-08-28] MEDS ORDERED: BETAPACE 120MG120 MG PO (13:51)
[2020-08-28 14:34] VITALS: BP 130/63; PULSE 92; TEMP 97.7
[2020-08-28 15:30] VITALS: BP 118/83; PULSE 94; TEMP 98.4
--- NOTE | 2020-08-28 15:35 | NUR ---
The patient discharge home today, 08/28. She is independent and has no needs.
== END 2020-08-28 15:15 | disposition home or self-care (01) | DRG 310 ==
LOC: MEDICAL 06:45
PROVIDERS: ADMIT Internal Medicine Cardiovascular Disease
DX: I48.0 Paroxysmal atrial fibrillation (principal); K21.9 Gastro-esophageal reflux disease without esophagitis; N18.9 Chronic kidney disease, unspecified
CPT/HCPCS: J3475

== ENCOUNTER 2020-09-10 17:07 | Inpatient (IN) | payer MEDICARE, BC ==
[~2020-09-10] VITALS: Ht 160 cm; Wt 51.4 kg
[~2020-09-10 17:07] MED LIST changes: +BETAPACE 120MG120 MG PO; +MUCUS RELIEF400 M1 PO; +PROTONIX 40MG T40 MG PO; +ZYRTEC 10MG10 MG PO
[2020-09-10] MEDS ORDERED: CORDARONE200 MG/TAB PO (18:07)
[2020-09-10 18:12] LABS: ARTERIAL BLD GAS O2 SATURATION 95.4 % (92-100); ARTERIAL BLD GAS TCO2 CT 22.6; ARTERIAL BLOOD GAS BASE EXCESS -1.7 (-2-2); ARTERIAL BLOOD GAS HCO3 21.6 meq/L (22-26); ARTERIAL BLOOD GAS PCO2 31.7 mmHg (35-45); ARTERIAL BLOOD GAS PO2 75.1 mmHg (80-100); ARTERIAL BLOOD GAS pH 7.45 (7.35-7.45)
[2020-09-10 18:31] LABS: ALBUMIN 3.5 gm/dL (3.5-5.0); BILIRUBIN,TOTAL 0.6 mg/dL (0.0-1.0); CALCIUM 8.7 mg/dL (8.4-10.2); CREATININE, serum 2.08 (0.52-1.25); POTASSIUM 4.2 mmol/L (3.4-5.0); TOTAL PROTEIN 6.9 gm/dL (6.4-8.2)
[2020-09-10 18:36] LABS: INR 3.3 (0.8-3.0); PROTHROMBIN TIME 36.8 SECONDS (9.7-12.8)
[2020-09-10 18:38] LABS: PARTIAL THROMBOPLASTIN TIME 39.3 SECONDS (26.0-37.0)
[2020-09-10 18:44] LABS: TROPONIN-I 0.017 ng/mL (0.000-0.035)
[2020-09-10 18:55] LABS: HEMOGLOBIN 11.6 g/dl (12.5-16.0); MEAN CELL VOLUME 86 fl (80.0-100.0); MEAN CORPUSCULAR HEMOGLOBIN 29 pg (27.0-31.0); MEAN CORPUSCULAR HGB CONC 33 g/dl (33.0-37.0); MEAN PLATELET VOLUME 11.5 fl (7.4-10.4); PLATELET COUNT 431 K/mm3 (130-400); RED BLOOD COUNT 4.03 M/mm3 (4.10-5.30); REDCELL DISTRIBUTION WIDTH-CV 16.5 % (11.5-14.5)
[2020-09-10 18:57] LABS: HEMATOCRIT 34.8 % (37.0-47.0)
[2020-09-10 19:01] LABS: BAND 1 % (0-10); LYMPHOCYTE 7 % (20.0-51.0); NEUTROPHILS 86 % (42.0-75.2)
[2020-09-10 21:52] VITALS: BP 105/77; PULSE 109; TEMP 97.3
[2020-09-10] MEDS ORDERED: ZEBETA 5MG5 MG PO (22:59)
[2020-09-10] MEDS ORDERED: LASIX 20MG TABL20 MG PO (23:00)
[2020-09-10] MEDS ORDERED: K-DUR20 MEQ PO (23:03)
[2020-09-10 23:09] LABS: COLLECTION METHOD CLEAN CATCH
[2020-09-10 23:14] LABS: PH 6 (5-8); SQUAMOUS EPITHELIAL None Seen /hpf; URINE APPEARANCE Clear; URINE BACTERIA None Seen /hpf; URINE BILIRUBIN Negative (NEGATIVE); URINE BLOOD 2+ (NEGATIVE); URINE COLOR Straw; URINE GLUCOSE Negative (NEGATIVE); URINE KETONE Negative (NEGATIVE); URINE LEUKOCYTE ESTERASE Negative (NEGATIVE); URINE NITRATE Negative (NEGATIVE); URINE PROTEIN(semi-quant) Negative (NEGATIVE); URINE UROBILINOGEN Negative (NEGATIVE)
[2020-09-11] VITALS (7 sets, daily range): BP systolic 96–115; BP diastolic 50–65; PULSE 51–111; TEMP 97.9–98.4
--- NOTE | 2020-09-11 06:16 | NUR ---
PATIENT ARRIVED TO ROOM 308 VIA CART FROM THE ED. PATIENT ABLE TO AMBULATE INDEPENDENTLY TO HER BED. V/S TAKEN AND ASSESSMENT AND ADMISSION COMPLETED UPON ARRIVAL. PATIENT AWAKE MOST OF THE NIGHT. NO NEW CONCERNS NOTED BY THIS NURSE OR REPORTED BY PATIENT.
[2020-09-11 06:50] LABS: HEMOGLOBIN 10.9 g/dl (12.5-16.0); MEAN CELL VOLUME 87 fl (80.0-100.0); MEAN CORPUSCULAR HEMOGLOBIN 28 pg (27.0-31.0); MEAN CORPUSCULAR HGB CONC 33 g/dl (33.0-37.0); PLATELET COUNT 421 K/mm3 (130-400); RED BLOOD COUNT 3.85 M/mm3 (4.10-5.30); REDCELL DISTRIBUTION WIDTH-CV 16.3 % (11.5-14.5)
--- NOTE | 2020-09-11 07:00 | NUR ---
PT LAYING IN BED AT THIS TIME.
[2020-09-11 07:07] LABS: HEMATOCRIT 33.3 % (37.0-47.0)
[2020-09-11 07:13] LABS: INR 2.2 (0.8-3.0); PROTHROMBIN TIME 24.3 SECONDS (9.7-12.8)
[2020-09-11 07:14] LABS: CALCIUM 8.2 mg/dL (8.4-10.2); CREATININE, serum 2.24 (0.52-1.25); POTASSIUM 3.5 mmol/L (3.4-5.0)
[2020-09-11 07:42] LABS: ANISOCYTOSIS 1+; HYPOCHROMIA 2+; LYMPHOCYTE 11 % (20.0-51.0); NEUTROPHILS 82 % (42.0-75.2); PLATELET ESTIMATE INCREASED (NORMAL)
[2020-09-11 08:21] LABS: PATHOLOGY DIFF REVIEW OK
--- NOTE | 2020-09-11 10:08 | NUR ---
KRISTINE met with the patient to discuss discharge plan and re-admit. The patient recently discharged from the hospital on 08/28 and returned home. She reports that she picked up her medications and mostly took her medications as prescribed. She said she sometimes did not take her calcium twice a day, like she is suppose to. She reports that things at home were not good, because cardiology had started her on a new medication and it made her have no energy and no appetite. She states that cardiology took her off the medication on Tuesday. She states that she did go to her appointment with her PCP. The patient lives alone in [place]. She states that her son, Kennedy (ph#[phone]), and daughter, Betsy Bravo (ph#[phone]), also live in [place]. She reports independence with ADLs and does not have any DME. The patient's PCP is Dr. Rex Valle and she receives her medications from [facility]. She reports no difficulties obtaining her meds. The patient does not have a DPOA-HC in EMR, but she states that she does have one completed and that it designates Kennedy and Betsy. She reports that Dr. Valle's office should have a copy. KRISTINE attempted to contact GISELE Salinasdriver manager, at Dr. Valle's office to request a copy. KRISTINE left a voicemail. The patient plans to return home upon discharge. KRISTINE discussed home health and it's benefits. The patient states that she does not think she needs home health at this time, but will think about it. KRISTINE contacted the patient's son, Kennedy, and reviewed the above information. Kennedy reports no concerns with the patient returning home upon discharge. He states that he is in [place], [place] at this time, but his sister will be coming up to the hospital to visit the patient. KRISTINE to continue to follow.
--- NOTE | 2020-09-11 10:54 | NUR ---
Warfarin Initial Dosing Pharmacy Note Ordering Provider: Henrik Alicia MD Indication: Atrial fibrillation LABS: INR 2.2 <- 3.3 Recommendation: Will restart Warfarin 2.5 mg po qHS. Pharmacy will continue to closely monitor daily INR levels. Home Regimen: Warfarin 2.5 mg po qHS
--- NOTE | 2020-09-11 11:39 | NUR ---
SW received the patient's DPOA-HC, via fax. SW placed the document in the patient's chart. The patient's DPOA-HC is her daughter (Mariola) and son (Rogelio).
--- NOTE | 2020-09-11 13:57 | NUR ---
Primary nurse was assisted with [phone] patient care by [employer] student Moon Silvestre and [employer] instructor Daria Armenta MSN, RN.
--- NOTE | 2020-09-11 19:26 | NUR ---
PT HAD UNEVENTFUL DAY. HAS DENIED ANY PAIN, BUT HAS SOME DISCOMFORT WITH THE COUGH SHE HAS HAD C/O FOR OVER A MONTH. SHE ALSO STATES THAT SHE WOULD LIKE SOMETHING FOR SLEEP THAT THE COUGH HAS KEPT HER AWAKE. NO OTHER CONCERNS. REPORT GIVEN TO GISELE ARNOLD.
--- NOTE | 2020-09-11 21:26 | NUR ---
Patient sitting up in bed upon enter the room. Non-productive cough noted. Patient denies SOB or dyspnea. Denies chest pain or discomfort. Called hospitalist VINCENT Mustafa and received order for PRN cough medicine. PRN Robitussin 5ml PO given for cough. All scheduled meds given at this time. Informed patient of NPO status from midnight for Ruthy scan tomorrow. patient verbalized understanding. Call light within reach. Patient denies any needs at this time. Will continue to monitor.
[2020-09-12] VITALS (19 sets, daily range): BP systolic 73–129; BP diastolic 31–80; PULSE 86–112; TEMP 98.1–99
--- NOTE | 2020-09-12 07:09 | NUR ---
PT IS AWAKE AT THIS TIME. SHE IS AWAITING A LEXISCAN. SHE STATES THAT SHE GOT GOOD SLEEP LAST NIGHT. NO OTHER CONCERNS AT THIS TIME. PT HAS BEEN NPO SINCE MIDNIGHT. DOES NOT HAVE ANY REQUESTS AT THIS TIME. WILL CONTINUE TO MONITOR. CALL LIGHT WITHIN REACH.
[2020-09-12 07:11] LABS: HEMOGLOBIN 10.6 g/dl (12.5-16.0); MEAN CELL VOLUME 88 fl (80.0-100.0); MEAN CORPUSCULAR HEMOGLOBIN 29 pg (27.0-31.0); MEAN CORPUSCULAR HGB CONC 33 g/dl (33.0-37.0); PLATELET COUNT 386 K/mm3 (130-400); RED BLOOD COUNT 3.64 M/mm3 (4.10-5.30); REDCELL DISTRIBUTION WIDTH-CV 16.2 % (11.5-14.5)
[2020-09-12 07:17] LABS: HEMATOCRIT 31.9 % (37.0-47.0)
[2020-09-12 07:18] LABS: CALCIUM 8.2 mg/dL (8.4-10.2); CREATININE, serum 2.03 (0.52-1.25); MAGNESIUM 1.8 mg/dL (1.6-2.3); POTASSIUM 3.8 mmol/L (3.4-5.0)
[2020-09-12 07:36] LABS: INR 2.2 (0.8-3.0); PROTHROMBIN TIME 25.1 SECONDS (9.7-12.8)
[2020-09-12 07:38] LABS: BAND 8 % (0-10); LYMPHOCYTE 10 % (20.0-51.0); NEUTROPHILS 78 % (42.0-75.2); PLATELET ESTIMATE INCREASED (NORMAL)
--- NOTE | 2020-09-12 13:36 | NUR ---
Primary nurse was assisted with [phone] patient care by [employer] student Moon Silvestre and [employer] instructor Daria Armenta MSN, RN
--- NOTE | 2020-09-12 16:12 | NUR ---
DR. Bal called and notified prior to stress test due to patient having abnormal heart rhythm and low blood pressure. Physican said it was okay to proceed with test. Post test patient started having low blood pressure, Dr. bal was called and again and RN was given order to start IV. Patient blood pressure came back to baseline.
--- NOTE | 2020-09-12 19:01 | NUR ---
Report received from day shift RNTrinidad. Patient sitting up on the side of bed upon shift start. Non-productive cough noted. Call light within reach. Patient denies any needs at this time.
--- NOTE | 2020-09-12 19:36 | NUR ---
Patient A/Ox4. Patient had small amount of emesis upon enter the room. Patient states she had some hamburger tonight and seems like it upset her stomach. Patient reports her stomach feels much better now and denies any nausea medicine. Patient continues having non-productive cough. PRN Robitussin given for cough. All scheduled meds given at this time. Call light within reach. Will continue to monitor.
[2020-09-13 04:20] VITALS: BP 102/51; PULSE 96; TEMP 98.7
--- NOTE | 2020-09-13 07:39 | NUR ---
Patient laying in bed, A&Ox4. VSS. IV CDI. Denies pain and discomfort. No further needs expressed from the patient. Call light within reach
[2020-09-13 07:42] VITALS: BP 100/45; PULSE 76; TEMP 98.3
[2020-09-13 07:55] LABS: INR 3.4 (0.8-3.0); PROTHROMBIN TIME 38.5 SECONDS (9.7-12.8)
[2020-09-13] MEDS ORDERED: COUMADIN 2MG2 MG/TAB PO (09:54)
--- NOTE | 2020-09-13 11:16 | NUR ---
Patient will discharge home today 09/13/2020 with . Patient has declined home health services at this time.
[2020-09-13 11:22] VITALS: BP 115/54; PULSE 102; TEMP 98.6
--- NOTE | 2020-09-13 13:30 | NUR ---
Patient transfered by wheelchair to ED entrance, Discharge paperwork and personal belongings with the patient.
== END 2020-09-13 13:30 | disposition home or self-care (01) | DRG 291 ==
LOC: COL.ER 17:07 → MEDICAL 18:58
PROVIDERS: Family Medicine; Internal Medicine; Nurse Practitioner Family; ADMIT Hospitalist
DX: I13.0 Hypertensive heart and chronic kidney disease with heart failure and stage 1 through stage 4 chronic kidney disease, or unspecified chronic kidney disease (principal); I50.23 Acute on chronic systolic (congestive) heart failure; N17.9 Acute kidney failure, unspecified; C92.10 Chronic myeloid leukemia, BCR/ABL-positive, not having achieved remission; E87.1 Hypo-osmolality and hyponatremia; I42.8 Other cardiomyopathies; N18.32 Chronic kidney disease, stage 3b; E78.5 Hyperlipidemia, unspecified; I25.10 Atherosclerotic heart disease of native coronary artery without angina pectoris; I48.91 Unspecified atrial fibrillation; D53.9 Nutritional anemia, unspecified; I34.0 Nonrheumatic mitral (valve) insufficiency; I27.20 Pulmonary hypertension, unspecified; Z20.822 Contact with and (suspected) exposure to COVID-19; Z95.1 Presence of aortocoronary bypass graft; Z79.01 Long term (current) use of anticoagulants; Z90.710 Acquired absence of both cervix and uterus; Z85.828 Personal history of other malignant neoplasm of skin; Z95.810 Presence of automatic (implantable) cardiac defibrillator
CPT/HCPCS: 99223-AI; 99232-AI; 99233-AI; 99239; A9500; J1940; J2785; J7030

== ENCOUNTER 2020-09-18 04:32 | Emergency (ER) | payer MEDICARE, BC ==
[~2020-09-18] VITALS: Ht 160 cm; Wt 50.9 kg
[~2020-09-18 04:32] MED LIST changes: +CORDARONE200 MG/TAB PO; +COUMADIN 2MG2 MG/TAB PO; +K-DUR20 MEQ PO
[2020-09-18 05:00] LABS: HEMOGLOBIN 10.5 g/dl (12.5-16.0); MEAN CELL VOLUME 89 fl (80.0-100.0); MEAN CORPUSCULAR HEMOGLOBIN 29 pg (27.0-31.0); MEAN CORPUSCULAR HGB CONC 32 g/dl (33.0-37.0); MEAN PLATELET VOLUME 10.2 fl (7.4-10.4); PLATELET COUNT 470 K/mm3 (130-400); RED BLOOD COUNT 3.66 M/mm3 (4.10-5.30); REDCELL DISTRIBUTION WIDTH-CV 16.6 % (11.5-14.5)
[2020-09-18 05:07] LABS: HEMATOCRIT 32.5 % (37.0-47.0)
[2020-09-18 05:08] LABS: INR 6.5 (0.8-3.0); PROTHROMBIN TIME 74.4 SECONDS (9.7-12.8)
[2020-09-18 05:10] LABS: ALBUMIN 3.2 gm/dL (3.5-5.0); BILIRUBIN,TOTAL 0.5 mg/dL (0.0-1.0); CALCIUM 8.6 mg/dL (8.4-10.2); CREATININE, serum 1.77 (0.52-1.25); POTASSIUM 4.1 mmol/L (3.4-5.0); TOTAL PROTEIN 6.4 gm/dL (6.4-8.2)
[2020-09-18 05:17] LABS: TROPONIN-I 0.019 ng/mL (0.000-0.035)
[2020-09-18 05:29] LABS: BAND 10 % (0-10); LYMPHOCYTE 4 % (20.0-51.0); NEUTROPHILS 84 % (42.0-75.2); PLATELET ESTIMATE INCREASED (NORMAL)
[2020-09-18 05:30] LABS: BURR CELLS 1+; HYPOCHROMIA 2+
[2020-09-18 05:38] LABS: COLLECTION METHOD CLEAN CATCH
[2020-09-18 05:48] LABS: AMORPHOUS CRYSTAL Present /uL; MUCOUS Present /lpf; PH 5 (5-8); SQUAMOUS EPITHELIAL 0-2 /hpf; URINE APPEARANCE Cloudy; URINE BACTERIA Rare /hpf; URINE BILIRUBIN Negative (NEGATIVE); URINE BLOOD 2+ (NEGATIVE); URINE COLOR Amber; URINE GLUCOSE Negative (NEGATIVE); URINE KETONE Negative (NEGATIVE); URINE LEUKOCYTE ESTERASE Trace (NEGATIVE); URINE NITRATE Negative (NEGATIVE); URINE PROTEIN(semi-quant) 2+ (NEGATIVE); URINE UROBILINOGEN Negative (NEGATIVE)
[2020-09-18 07:05] VITALS: TEMP 98
[2020-09-18 07:55] VITALS: BP 102/58; PULSE 106
== END 2020-09-18 08:15 | disposition short-term general hospital (02) ==
LOC: COL.ER 04:32
PROVIDERS: Emergency Medicine
DX: N17.9 Acute kidney failure, unspecified (principal); D64.9 Anemia, unspecified; I42.9 Cardiomyopathy, unspecified; C92.10 Chronic myeloid leukemia, BCR/ABL-positive, not having achieved remission; I10 Essential (primary) hypertension; Z95.0 Presence of cardiac pacemaker; Z79.01 Long term (current) use of anticoagulants
CPT/HCPCS: J2543; J3430; J7030; J7060; J7120